=== PATIENT | male | born 1950 | race Caucasian/White ===

== ENCOUNTER 2018-06-03 06:56 | Inpatient (IN) | payer OTHER ==
[~2018-06-03] VITALS: Ht 182.9 cm; Wt 79.7 kg
[2018-06-03 11:51] VITALS: BP 150/63
[2018-06-03 13:08] VITALS: BP 108/57
[2018-06-03 13:53] LABS: HEMATOCRIT 30.2 % (42.0-52.0); HEMOGLOBIN 9.6 gm/dL (14.0-18.0); MCHC 31.9 g/dL (28.0-37.0); MCV 84.7 fL (80.0-100.0); RBC 3.56 mil/uL (4.50-6.00); WBC 6.1 thou/uL (4.0-11.0)
[2018-06-03 14:13] LABS: ALBUMIN 2.8 g/dL (3.4-5.0); CALCIUM 9.5 mg/dL (8.5-10.1); POTASSIUM 4.5 mmol/L (3.5-5.1); TOTAL BILIRUBIN 0.2 mg/dL (<0.1-1.0); TOTAL PROTEIN 9.3 g/dL (6.4-8.2)
[2018-06-03 14:21] LABS: ABSOLUTE NEUTROPHILS 2.7 thou/uL (1.4-8.2)
[2018-06-03 14:22] LABS: PLATELET COUNT 598 thou/uL (150-400); PLATELET ESTIMATE INCREASED
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
[2018-06-03] MEDS ORDERED: DEXILANT30 MG PO (19:13)
[2018-06-03] MEDS ORDERED: LISINOPRIL2.5 MG PO (19:14)
[2018-06-03] MEDS ORDERED: IRON325 PO (19:14)
[2018-06-03] MEDS ORDERED: BAYER CHEWABLE81 MG PO (19:15)
[2018-06-03] MEDS ORDERED: LUMIGAN2.5 M1 OPHTHALMIC (19:16)
[2018-06-03] MEDS ORDERED: VITAMINC500 PO (19:16)
[2018-06-03] MEDS ORDERED: ZINC-220220 MG PO (19:18)
[2018-06-03] MEDS ORDERED: CYCLOBENZAPRINE5 MG PO (19:18)
[2018-06-03] MEDS ORDERED: PLAVIX 75 MG TA75 M1 PO (19:19)
[2018-06-03] MEDS ORDERED: NEURONTIN 300300 M1 PO (19:19)
[2018-06-03] MEDS ORDERED: SINGULAIR 10 MG10 M1 PO (19:20)
[2018-06-03] MEDS ORDERED: ATORVASTATIN CA40 MG PO (19:25)
[2018-06-03] MEDS ORDERED: TYLENOL EXTRA500 MG PO (19:25)
[2018-06-03] MEDS ORDERED: ACIDOPHILUS1 EAC4 PO (19:26)
--- NOTE | 2018-06-03 19:40 | NUR ---
PT ARRIVED ON UNIT THIS AFTERNOON FROM DR. RAMIREZ'S OFFICE. ADMISSION HX, ASSESSMENT AND EDUCATION COMPLETE. ORDERS IMPLEMENTED. WOUMD CARE COMPLETED. PT RESTING COMFORTABLY
[2018-06-03 19:42] VITALS: BP 126/51
[2018-06-04] VITALS (8 sets, daily range): BP systolic 92–135; BP diastolic 47–62
[2018-06-04 06:08] LABS: URINE BILIRUBIN NEGATIVE (Negative); URINE BLOOD TRACE (Negative); URINE CLARITY CLEAR; URINE COLOR YELLOW; URINE GLUCOSE-RANDOM* NEGATIVE (Negative); URINE KETONES NEGATIVE (Negative); URINE NITRITE-REFLEX NEGATIVE (Negative); URINE PROTEIN (DIPSTICK) NEGATIVE (Negative); URINE UROBILINOGEN 0.2 E.U./dl (0.2-1.0)
[2018-06-04 06:15] LABS: URINE LEUKOCYTES-REFLEX 3+ (Negative)
[2018-06-04 06:42] LABS: CASTS None Seen /LPF (None Seen); SQUAMOUS 0-3 Few /LPF (0-3)
[2018-06-04 06:43] LABS: BACTERIA-REFLEX 1-9 Few /HPF (None Seen); CRYSTALS None Seen /LPF (None Seen); URINE RBC 0-2 Rare /HPF (0-2); URINE WBC-REFLEX >25 Many /HPF (0-5); WBC CLUMPS Moderate (None Seen)
--- NOTE | 2018-06-04 07:48 | NUR ---
Assumed care at 1845. Pt resting in bed. VSS. AOX1. Dressing change performed. Pt scheduled for Excisional and ultrasonic debridement today. Been turning him Q2H. IV right upper arm. Young in place. Call light within reach. No identified needs at the moment. Will continue to monitor.
--- NOTE | 2018-06-04 11:35 | NUR ---
WOUND CONSULT: PT. WAS SEEN TODAY BY DR. GLOVER AND MYSELF. PT. WAS ADMITTED YESTERDAY FROM THE WOUND CARE CLINIC BY DR. RAMIREZ. PT. HAS STAGE 3 PRESSURE ULCERS TO HIS SACRUM, STAGE 3 PRESSURE ULCER TO HIS RIGHT LATERAL LEG, STAGE 4 PRESSURE ULCER TO HIS LEFT HIP AND AN ABRASION TO HIS LEFT FOOT. PT. WILL GO TO THE OR TODAY WITH DR. BOONE FOR SUGICAL DEBRIDEMENT OF THE LEFT HIP. RECOMMENDATIONS: DAKIN'S WET TO DRY DRESSING TO HIS SACRUM AND LEFT HIP AG FOAM TO HIS RIGHT LATERAL LEG BOARDERED FOAM TO LEFT FOOT TURN Q2 HOURS KEEP ON LOW AIR LOSS SURFACE KEEP IN HEEL PROTECTOR BOOTS PT. AND STAFF NURSE WERE INSTRUCTED ON PLAN OF CARE.
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
--- NOTE | 2018-06-04 16:19 | NUR ---
VASCULAR ACCESS CALLED TO PRE[facility] FOR PIV, ATTEMPTS UNSUCCESSFUL,PIV STARTED IN [facility] BY ANESTHESIA. AGAIN SPOKE TO ROM RN TO CALL MD FOR IR ORDER FOR TICC LINE TOMORROW. THIS WAS RECOMMENDED YESTERDAY AND THIS MORNING DUE TO PT'S CONTRACTURES AND LIMITED ACCESS.
--- NOTE | 2018-06-04 17:26 | NUR ---
TOWARDS POC PT A/O X1. CALM, COOPERATIVE. DENIES PAIN. WOUND CARE AND DRESING DONE. PT HAD I&D THIS PM. DRESSING C/D/I. PT WILL HAVE TICC LINE PLACEMENT TOMORROW. CONSENT SIGNED BY DPOA. WILL CONTINUE TO MONITOR.
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
[2018-06-05 03:45] VITALS: BP 106/55
[2018-06-05 07:37] VITALS: BP 104/47
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
--- NOTE | 2018-06-05 11:21 | NUR ---
WOUND FOLLOW UP: PT. WAS SEEN TODAY BY DR. RAMIREZ AND MYSELF. PT. HAD SURGICAL DEBRIDEMENT OF HIS LEFT HIP YESTERDAY. WOUND PICTURES WERE TAKEN TODAY ALONG WITH MEASUREMENTS AND DRESSING CHANGED COMPLETED. WOUND CARE ORDERS WERE UPDATED TO AID IN HEALING. RECOMMENDATIONS: CONTINUE WITH CURRENT PLAN OF CARE. PT. AND STAFF NURSE WERE INSTRUCTED ON PLAN OF CARE.
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
--- NOTE | 2018-06-05 12:40 | NUR ---
ASSUMED PT CARE REPORT RECEIVED FROM NURSE. PT IS AOX3 FORGETFULL, AWAKE . MEDSURG STATUS. ON RA SATURATION ABOVE 95%. PT HAS GOOD APPETITE. MORNING MEDICINE GIVEN ORDERED BY STUDENT NURSE ALONG WITH INSTRUCTOR. PATIENT REPOSITIONING PERFORMED Q2 HOURS. WOUND NURSE DID L HIP DRESSING. PICTURE WAS TAKEN AND PLACED IN CHART. SEE CHART. RIGHT LEG DRESSING DONE BY THIS NURSE ORDERED. HEEL PROTECTORS IN PLACE. IV LINE PATENT. NURSE SPOKE WITH PT SISTER AND UPDATED HER ABOUT THE PROCESSOF CARE. KHOURY PATENT. CARMENCITA CONTINUE TO MONITOR PT
[2018-06-05 15:19] VITALS: BP 105/68
[2018-06-05 19:33] VITALS: BP 163/104
[2018-06-05 19:42] VITALS: BP 146/78
--- NOTE | 2018-06-06 03:43 | NUR ---
PATIENT IS ALERT AND ORIENTED TO SELF. PT WAS ABLE TO GET COMFORTABLE AND GET SOME SLEEP THIS SHIFT. WOUND CARE AND ABX TREATMENT CONTINUED. PT WAS TURNED EVERY 2-3 HOURS. PT ANSWERED YES AND NO QUESTIONS. FAMILY WAS AT BEDSIDE PART OF THE SHIFT. NEITHER PT OR FAMILY HAVE ANY QUESTIONS AND CONCERNS AT THIS TIME. PATIENT IS PROGRESSING TOWARDS DC GOALS.
[2018-06-06 05:05] VITALS: BP 118/63
[2018-06-06 05:19] LABS: HEMATOCRIT 26.2 % (42.0-52.0); HEMOGLOBIN 8.7 gm/dL (14.0-18.0); MCH 27.8 pg (26.0-34.0); MCHC 33.3 g/dL (28.0-37.0); MCV 83.3 fL (80.0-100.0); RBC 3.14 mil/uL (4.50-6.00); RDW 15.2 % (10.5-14.5); WBC 9.4 thou/uL (4.0-11.0)
[2018-06-06 05:31] LABS: CALCIUM 8.6 mg/dL (8.5-10.1); CREATININE 1.2 mg/dL (0.7-1.3); MAGNESIUM 1.8 mg/dL (1.8-2.4); POTASSIUM 4.6 mmol/L (3.5-5.1)
[2018-06-06 08:00] VITALS: BP 118/56
--- NOTE | 2018-06-06 10:25 | NUR ---
Nutrition: Pt admitted with stage 4 left hip wound, two stage 3 wounds. Seen for follow up. Debridement of hip wound 06/04. Per sister, appetite is good, 100% intake. Breakfast this morning showed >75% intake. Drinking Noah. Was unsure of UBW-thought to be around 165 lbs. Current 175.8 lbs. Dysphagia mentioned in EMR. No ST note and sister denies problems swallowing. Pt reports drinking some of Ensure. Physician indicated PCM-defer. With interventions in place, low nutrition risk.
--- NOTE | 2018-06-06 11:04 | NUR ---
WOUND FOLLOW UP: PT. WAS SEEN TODAY BY DR. MCCALLUM AND MYSELF. PT. WOUNDS ARE ALL CLINICALLY BETTER AT THIS TIME. PT. WAS STARTED ON WOUND VAC THERAPY TODAY TO HIS LEFT HIP WOUND. PT. TOLERATED WELL. RECOMMENDATIONS: CONTINUE WITH CURRENT PLAN OF CARE. PT. AND STAFF NURSE WERE INSTRUCTED ON PLAN OF CARE.
--- NOTE | 2018-06-06 11:19 | NUR ---
TIC ORDERED FOR PT 06/05 BUT PT HAD SURGERY YESTERDAY. PT TO BE BROUGHT DOWN TO IR TODAY FOR TICC. TOREY TO CALL SISTER FOR CONSENT. WILL UPDATE HER ON THE TIME WE WILL HAVE HIM BROUGHT DOWN.
--- NOTE | 2018-06-06 14:27 | NUR ---
ASSUMED CARE 0700. ALERT TO SELF. DOES NOT VOICE PAIN. DRESSING CHANGED BY WOUND CARE NURSE WITH PICTURE TAKEN OF LEFT HIP PRIOR TO WOUND VAC PLACE. TURN Q2H. HEAL BOOTS, AIRLOSS PUMP IN PLACE. FALL PRECAUTIONS IN PLACE. PT IS PARAPALIGIC WITH CONTRACTIONS IN UPPER AND LOWER EXTREMITIES. MOVED CLOSER TO NURSES STATION FOR OVERSIGHT. PT UNABLE TO USE CALL LIGHT. PLANS TO HAVE IR PLACE PICC LINE TODAY. FAMILY BEDSIDE. WILL DC TO SKILLED WHEN MEDICAL STABLE.
--- NOTE | 2018-06-06 14:44 | NUR ---
CM MET WITH PT AND SISTER AT BEDSIDE THIS MORNING. PT'S SISTER INDICATED THAT THEY WERE LOOKING AT THE SNF LIST AND THAT SHE WAS INTERESTED IN [facility]. CM ASKED THAT DC JEWELRY COATER SEND REFERRAL TO THEM FOR REVIEW FOR POSSIBLE ADMISSION BEGINING OF NEXT WEEK FOR SNF THEN POSSIBLE LTC. CM TO FOLLOW INDICATED WITH DC PLANNING.
[2018-06-06 15:00] VITALS: BP 96/55
--- NOTE | 2018-06-06 15:11 | NUR ---
DISCHARGE PLANNING. ANTICIPATED DISCHARGE FOR BEGINNING OF NEXT WEEK. POST ACUTE CARE RECOMMENDED AT DISCHARGE. PATIENT INTERESTED IN DISCHARGING TO [facility]P UNIT AND THEN TRANSITIONING TO [facility] CARE UNIT. PATIENT REQUESTS REFERRAL FAXED TO [facility] STEPH[facility] FOR DISCHARGE PLACEMENT NEEDS. CALL PLACED TO PAMELA GARCÍA [facility] ACQUISITION MANAGER. RICKY UNAVAILABLE, MESSAGE LEFT FOR RICKY REGARDING PATIENT REFERRAL. CM CONTACT INFORMATION PROVIDED. UNIT CM/SW AWARE. FOLLOWING TO ASSIST WITH DISCHARGE PLACEMENT NEEDS.
--- NOTE | 2018-06-06 15:52 | NUR ---
PT NOT ABLE TO HAVE A TICC PLACED TODAY DUE TO NPO STATUS NOT IN PLACE. PT HAS VERY LIMITED SITES FOR A VAD. WILL PLACE A SL IJ LINE TODAY SO PT WILL NOT HAVE A DELAY IN CARE WHEN HIS PIV FAILS. TOREY OBTAINED AN ORDER FOR THE IJ. WILL FOLLOW UP NEXT WEEK FOR TUNNELED LINE PT WILL NEED HALFWAY ABX FOR SNF AND POSS HOME USE.
--- NOTE | 2018-06-06 17:21 | NUR ---
JUNGULAR CENTRAL LINE PLACED ON RIGHT SIDE. IR TO PLACE TICC LINE ON SATURDAY. NPO ON AFTER DINNER ON SATURDAY.
--- NOTE | 2018-06-06 18:05 | NUR ---
PT TUNNELED LINE ON HOLD TILL NEXT WEEK BUT PT NEEDING A LINE FOR ABX. DR CANTU CONTACTED AND A CL ORDERED. 4FRSLPICC TRIMMED AT 28CM INSERTED IN RT IJ X1 ATTEMPT. PLEASE SEE NI DOCUMENTATION FOR DETAILS.
[2018-06-06 19:53] VITALS: BP 157/75
--- NOTE | 2018-06-07 01:33 | NUR ---
PATIENT AOX1, PATIENT IS ABLE TO ANSWER YES/NO QUESTIONS. PATIENT DENIED PAIN OR DISCOMFORT. PATIENT HAD BM THIS SHIFT. PATIENT TURNED Q 2 HOURS. PATIENT HAS A WOUND VAC ON THE LEFT HIP, RUNNING WELL. PATIENT HAS MULTIPLE WOUNDS ON BLE AND SCRUM DRESSING C/D/I. MULTIPLE SCARS.PATIENT TURNED Q 2 HOURS. PERICARE AND BARRIER CREAM APPLIED NEEDED. PATIENT IN BED ASLEEP AT THIS TIME BREATHING REGULAR AND UNLABOURED.
[2018-06-07 03:36] VITALS: BP 134/54
[2018-06-07 05:35] LABS: CALCIUM 8.5 mg/dL (8.5-10.1)
[2018-06-07 08:00] VITALS: BP 122/56
[2018-06-07 16:13] VITALS: BP 157/85
--- NOTE | 2018-06-07 19:39 | NUR ---
ASSUMED CARE OF PT AT O700. ASSESSMENT COMPLETED. ALERT TO SELF ONLY. C/O LEFT HIP PAIN, PAIN MEDS GIVEN ORDERED. LEFT HIP WOUND VAC IN PLACE. SISTER VISITED TODAY. NO OTHER CHANGE IN STATUS. PT IN STABLE CONDITION. SOFT TOUCH CALL LIGHT WITHIN REACH.
[2018-06-07 20:05] VITALS: BP 124/71
[2018-06-08 04:35] VITALS: BP 109/61
--- NOTE | 2018-06-08 05:10 | NUR ---
ASSUMED PT CARE 1899. PT ALERT TO SELF. REASSESSMENT COMPLETE. VSS. PT DENIES N/V, REPORTS ACHINESS, SEE EMAR. WOUND VAC IN PLACE. IV DRESSING C/D/I. SOFT TOUCH CALL LIGHT WITHIN REACH. WILL CONTINUE POC UNTIL EOS.
--- NOTE | 2018-06-08 15:04 | NUR ---
ASSUMED CARE OF PT AT 0700. ASSESSMENT COMPLETED. ALERT TO SELF ONLY. C/O LEFT HIP PAIN, PAIN MEDS GIVEN ORDERED. LEFT HIP WOUND VAC IN PLACE. MULTIPLE WOUNDS ON LOWER EXTREMITIES AND SACRUM, DRESSING CHANGED ORDERED. Q2H TURNS. SISTER AT BEDSIDE THIS AFTERNNON. BM TODAY. NO OTHER CHANGE IN STATUS. PLAN FOR TICC LINE PLACEMENT TOMORROW.
[2018-06-08 15:59] VITALS: BP 90/40
[2018-06-08 20:23] VITALS: BP 110/62
[2018-06-09 04:32] VITALS: BP 152/65
--- NOTE | 2018-06-09 05:35 | NUR ---
ASSUMED PT CARE 1899. PT ALERT TO SELF. REASSEMENT COMPLETE. VSS. IV DRESSING C/D/I, NO SIGNS OF INFILTRATION. PAIN TREATED, SEE EMAR. FREQUENT REPOSTIONING. WOUND VAC IN PLACE. SOFT TOUCH CALL LIGHT EITHIN REACH. WILL CONTINUE POC UNTIL EOS.
[2018-06-09 06:20] LABS: APTT 34.1 Seconds (24.5-32.8); PROTIME 10.8 Seconds (9.3-11.4)
[2018-06-09 08:08] VITALS: BP 144/55
[2018-06-09] MEDS ORDERED: MEROPENEM 1 GM V1 GM IVPB (10:03)
[2018-06-09] MEDS ORDERED: VANCO 1 GR1 GM/250 M IVPB (10:10)
--- NOTE | 2018-06-09 12:00 | NUR ---
PT A&OX SELF, NON AMB, IV INTACT IN R IJ. L HIP WITH WOUND VAC INTACT. PT HAS BEEN NPO [place] FOR TICC PLACEMENT. WILL CONT POC.
--- NOTE | 2018-06-09 13:03 | NUR ---
FAXED REFERRAL TO [facility] OP LEFT MSG WITH ANI IN ADM. THAT PT IS DC READY TODAY. [facility]EPT THEY HAVE NO SKILLED OR LTC BEDS. DCP TO FOLLOW.
--- NOTE | 2018-06-09 14:27 | NUR ---
CARE TEAM WAS NOTIFIED THAT [facility] DOESN'T HAVE ANY SNKILLED OR LTC BEDS OPEN AT THIS TIME. CM CALLED AND NOTIFIED PT'S SISTER AND INDICATED THAT WE THEREFORE NEEDED TO LOOK INTO SOME OTHER FACILITIES FOR POSSIBLE ADMISSION. SHE INDICATED THAT SHE AND HER SISTER WERE LOOKING INTO [facility] OP. CM INDICATED THAT THEY DIDN'T OFFER LTC, MS. STONE INDICATED SHE UNDERSTOOD THAT BUT THAT THEY WOULD LIKE TO LOOK AT IT FOR SHORT TERM SKILLED PLACEMENT. REFERRAL WAS SENT TO [facility] AND IT WAS INDICATED WITH THEY DIDN'T HAVE BEDS OPEN UNTIL SATURDAY OR SATURDAY. CM CALLED AND NOTIFIED PT'S SISTER AND INDICATED THAT [facility] ALL HAVE SNF AND LTC AND DR. WAY FOLLOWS THERE. SHE INDICATED SHE AND HER SISTER WOULD LOOK INTO THEM. CM TO FOLLOW INDICATED WITH DC PLANNING.
--- NOTE | 2018-06-09 16:29 | NUR ---
NURSE DD WITH HOSPICE HOUSE ASESSED PT AND INDICATED THAT SHE IS APPROPRIATE FOR ADMISSION THIS DAY. OUT OF THE HOSPITAL DNR FORM WAS COMPLETED AND PLACED ON CHART. CM ARRANGED TRANSPORT VIA [facility] FOR 1800. PT'S SON IS AWARE AND AGREEABLE. NUMBRE FOR REPORT LEFT WITH NURSE. NO OTHER CM INTERVENTION INDICATED AT THIS TIME. CASE CLOSED.
[2018-06-09 16:51] VITALS: BP 113/49
--- NOTE | 2018-06-09 18:26 | NUR ---
WOUND FOLLOW UP: PT. WAS SEEN TODAY BY DR. GLOVER AND MYSELF. PT. WOUNDS ARE ALL CLINICALLY BETTER AT THIS TIME. WOUND VAC DRESSING WAS CHANGED AND PT. TOLERATED PROCEDURE WELL. RECOMMENDATIONS: CONTINUE WITH CURRENT PLAN OF CARE. PT. AND STAFF NURSE WERE INSTRUCTED ON PLAN OF CARE.
[2018-06-09 19:50] VITALS: BP 123/61
[2018-06-10 04:40] VITALS: BP 127/55
--- NOTE | 2018-06-10 05:44 | NUR ---
Assumed care of pt at 1900. Q2h turn. Wound vac in place. Pt refused hs meds. Prefo boots in place. Pt has contractures. Feeder. Young catheter in place. IV antibiotics administered. Fall precautions in place. Will continue to monitor.
[2018-06-10 07:18] VITALS: BP 131/53
--- NOTE | 2018-06-10 08:37 | NUR ---
FAMILY WANT PT TO GO TO [facility] THEY WON'T HAVE BEDS UNTIL SATURDAY OR SATURDAY. CM INDICATED THAT [facility] AND SKILLED AND TAKE MEDICARE AND [facility] FOLLOWS THERE. CM FOLLOWING INDICATED WITH DC PLANNING.
--- NOTE | 2018-06-10 10:01 | NUR ---
WOUND FOLLOW UP: PT. WAS SEEN TODAY BY DR. GLOVER AND MYSELF. PT. WOUND VAC IS C/D/I AT THIS TIME. ALL WOUNDS ARE CLINICALLY BETTER AND PT. IS IN GOOD SPIRITS. RECOMMENDATIONS: CONTINUE WITH CURRENT PLAN OF CARE. PT. AND STAFF NURSE WERE INSTRUCTED ON PLAN OF CARE.
--- NOTE | 2018-06-10 10:08 | NUR ---
FAXED REFERRAL TO [facility] SPOKE WITH LICO IN ADM. SHE RECEIVED REFERRAL AND WILL REVIEW,LET HER KNOW THAT PT. IS DC READY TODAY. DCP TO FOLLOW.
--- NOTE | 2018-06-10 13:10 | NUR ---
FAXED REFERRAL TO [facility] SPOKE WITH MARGARITA IN ADM. SHE RECEIVED REFERRAL AND WILL REVIEW BUT WILL NOT HAVE A BED AVAILABLE TIL TOMORROW.
--- NOTE | 2018-06-10 14:51 | NUR ---
FAXED REFERRAL TO [facility] LEFT MSG WITH ADM. THAT PT. IS DC READY TODAY. FAXED REFERRAL TO [facility] LEFT OKG WITH ADM, TO REVIEW AND PT. DC READY TODAY. [facility]ED REFERRAL TO [facility] LEFT MSG WITH SARAI IN ADM TO REVIEW REFERRAL AND THAT PT IS DC READY TODAY. DCP TO FOLLOW.
--- NOTE | 2018-06-10 15:45 | NUR ---
Following for d/c planning needs. [facility] does not have beds available. [facility] declined admission. [facility] declined admission. Asked internet media planner to fax referral to [facility]. Pt's sister is also agreeable with referral being sent to [facility] and [facility]. Asked internet media planner to fax to facilities. Will await return call re: bed availability and acceptance.
[2018-06-10 16:16] VITALS: BP 162/68
--- NOTE | 2018-06-10 19:51 | NUR ---
ASSUMED CARE AT 0700, SHIFT ASSESSMENT DONE, MEDS GIVEN, VSS. ATE BREAKFAST. DENIES PAIN, NAUSEA, VOMITING. PROPHYLACTIC PAIN MED GIVEN BEFORE DRESSING CHANGE. DRESSING CHANGE PERFORMED PER ORDER. RECEIVING IV ANTIBIOTICS. WOUND VAC TO RIGHT HIP INTACT AND FUNCTIONING WELL. WILL CONTINUE TO ASSESS AND ASSSIT WITH ADLs NEEDED.
[2018-06-10 20:30] VITALS: BP 126/55
[2018-06-11 04:30] VITALS: BP 120/55
--- NOTE | 2018-06-11 06:23 | NUR ---
PT REMAINS NON VERBAL, REFUSING SOME OF THE CARE, TURNED EVERY TWO HOURS, REMAINS CONTRACTED, DENIES PAIN, REFUSED PAIN MEDS, WOUND VAC PATENT, 50 ML OUTPUT THIS SHIFT, KHOURY CATH PATENT, ON CONTACT ISO, STANDARD PRECAUTION OBSERVED, TOOK SOME MEDS WITH PUDDING, OTHERS HE REFUSED, BOOTS TO BOTH LEGS, ALL DRESSINGS INTACT, HOURLY ROUNDING, MONITORED.
[2018-06-11 08:00] VITALS: BP 149/78
--- NOTE | 2018-06-11 12:46 | NUR ---
ASSUMED CARE AT 0700, SHIFT ASSESSMENT DONE, MEDS GIVEN, VSS. DENIES ANY PAIN, NAUSEA, VOMITING. ATE BREAKFAST AND LUNCH. RECEIVING IV ANTIBIOTICS. WOUND CARE TO BE PERFORMED WITH WOUND TEAM. WILL CONTINUE TO ASSESS AND ASSIST WITH ADLs NEEDED.
--- NOTE | 2018-06-11 14:54 | NUR ---
PT. DISCHARGING TODAY TO [facility] FAXED DC ORDERS/SUMMARY TO FACILITY. LEFT MSG WITH ADM. LIASON THAT PT. WILL TRANSPORT VIA AMBULANCE AT 1530. FAMILY NOTIFIED OF DISCHARGE AND TIME OF TRANSPORT. UNIT NOTIFIED AND CHART COPY PER US. RN TO CALL REPORT TO [phone].
--- NOTE | 2018-06-11 15:54 | NUR ---
Following for d/c planning needs. Spoke with physical therapy coordinator at [facility]. They have several residents in the facility with influenza and are not accepting new patients. Pt's sister wants pt to go to [facility]. Called physical therapy coordinator at [facility] and they are able to accept today. transportation planner arranged ambulance transport. Chart copied. [id number] completed and is on chart. Patient choice letter completed and on chart. No other needs identified.
--- NOTE | 2018-06-11 17:09 | NUR ---
DISCHARGE ORDERS RECEIVED, REPORT WAS CALLED TO FACILITY AND GIVEN TO MACEY. PERIPHERAL IV WAS TAKEN OUT. LEFT WITH THE TICC LINE FOR IV ANTIBIOTICS. WOUND DRESSING CHANGE WAS DONE, WOUND VAC WAS REMOVED AND WET TO DRY DRESSING WAS APPLIED.
[2018-06-11] MEDS ORDERED: MEROPENEM 1 GM V1 GM IVPB (17:47)
--- NOTE | 2018-06-12 15:06 | PATH ---
[facility] [address] [address] PATHOLOGY RPT PROCEDURE Name: JOSUE DIAZ Room #: 430-P DIS IN M.R.#: [id number] ������������������ Admission: 06/03/18 ������������������ Date of : 46 Discharge: 06/11/18 Report #: [id number] Path Case #: [id number] [facility] Accession Number: [id number] . 01 Material submitted: . PART A: hip - LEFT HIP BONE. Modifiers: left PART B: hip - LEFT HIP WOUND. Modifiers: left . 01 Clinical history: . None provided . 02 Diagnosis: A. Bone and soft tissue "left hip wound bone": - Fragments of bone and soft tissue revealing necrosis, granulation tissue, acute and chronic inflammation and reactive changes. . B. Skin with underlying soft tissue "left hip wound", excision: - Extensive ulceration with necrotic acute inflammatory exudate with fragments revealing gangrenous-type of necrosis with bacterial colonization. (SHAKIRA/oksana; 06/06/2018) LBQ/06/06/2018 . 02 Electronically signed: . Justen Smiley MD, Pathologist NPI- [id number] . 01 Gross description: . A. The specimen is received in formalin, labeled "Josue Diaz, left hip wound bone". Received is dusky colon-vicente soft tissue admixed with a slight amount of light vicente bone measuring 2.9 x 2.1 x 0.6 cm in aggregate dimensions. The specimen is filtered and entirely submitted in cassette A1, following light decalcification. . B. The specimen is received in formalin, labeled "Josue Diaz, left hip wound". Received is an excision of colon-brown skin with attached underlying yellow-vicente to dusky colon-vicente soft tissue measuring 10.6 x 5.1 x 6.4 cm in greatest dimensions. The epidermal surface displays a well-circumscribed, depressed and pink-vicente lesion measuring 3.9 x 2.3 cm. The specimen is submitted representatively in cassette B1. (CAA; 06/05/2018) QAC/QAC . 02 Pathologist provided ICD-10: L98.9, M87.80 . 02 [place] [address] PATHOLOGY RPT PROCEDURE Name: JOSUE DIAZ Room #: 430-P DIS IN M.R.#: [id number] ������������������ Admission: 06/03/18 ������������������ Date of : 46 Discharge: 06/11/18 Report #: [id number] Path Case #: [id number] Specimen Comment: A courtesy copy of this report has been sent to Specimen Comment: [phone], , . Specimen Comment: Report sent to ,DR GIBBONS / DR CANTU Specimen Comment: A duplicate report has been generated due to demographic updates. Performed at: [address] [facility], [place] [address] MD Sundeep Mcwilliams MD Phone: [phone] Performed at: [address] [id number] MD Ellen Wheeler MD Phone: [phone]
== END 2018-06-11 18:38 | DRG 579 ==
LOC: HYPER 06:56 → 4E 12:36 → 4W 12:36 → HYPER 12:43 → 4W 06-05 14:02 → 4E 06-07 06:06
PROVIDERS: Emergency Medicine Emergency Medical Services; Internal Medicine; Nurse Practitioner; Specialist; ADMIT Hospitalist
DX: L89.224 Pressure ulcer of left hip, stage 4 (principal); G82.50 Quadriplegia, unspecified; M86.8X8 Other osteomyelitis, other site; M00.9 Pyogenic arthritis, unspecified; E44.0 Moderate protein-calorie malnutrition; L02.416 Cutaneous abscess of left lower limb; L89.154 Pressure ulcer of sacral region, stage 4; L89.893 Pressure ulcer of other site, stage 3; B95.2 Enterococcus as the cause of diseases classified elsewhere; D64.9 Anemia, unspecified; S90.812A Abrasion, left foot, initial encounter; X58.XXXA Exposure to other specified factors, initial encounter; E78.5 Hyperlipidemia, unspecified; I10 Essential (primary) hypertension; H40.9 Unspecified glaucoma; Z68.23 Body mass index [BMI] 23.0-23.9, adult; Z86.73 Personal history of transient ischemic attack (TIA), and cerebral infarction without residual deficits; Z88.0 Allergy status to penicillin; Z74.01 Bed confinement status; Z86.718 Personal history of other venous thrombosis and embolism; Y93.89 Activity, other specified; Y92.89 Other specified places as the place of occurrence of the external cause; Y99.8 Other external cause status
CPT/HCPCS: 10047; 10783; 50010; 50101; 50386; 50403; 57119; 57120; 57192; 62110; 62900; 70005